=== PATIENT | male | born 1960 | race Caucasian/White ===

== ENCOUNTER 2022-10-14 13:50 | Outpatient (OUT) | payer OTHER, SELFPAY ==
[2022-10-14 14:18] LABS: Basophils Percent Auto 0.8 % (0.2-2.0); Eosinophils Absolute Auto 0.2 10^3/uL (0.0-0.7); Eosinophils Percent Auto 3.4 % (0.9-7.0); Hemoglobin 13.4 g/dL (14.0-18.0); Immature Granulocytes Abs Auto 0.01 10^3/uL (0.00-0.03); Immature Granulocytes Pct Auto 0.2 % (0.0-0.5); Lymphocytes Absolute Auto 1.1 10^3/uL (1.2-3.8); Lymphocytes Percent Auto 23.6 % (20.5-60.0); Mean Corpuscular HGB Conc 33.5 g/dL (29.9-35.2); Mean Corpuscular Hemoglobin 33.4 pg (25.9-34.0); Mean Corpuscular Volume 99.8 fL (80.0-94.0); Mean Platelet Volume 9.3 fL (9.5-13.5); Monocytes Absolute Auto 0.5 10^3/uL (0.3-0.8); Neutrophils Absolute Auto 2.9 10^3/uL (1.4-6.5); Platelet Count 188 10^3/uL (150-450); Red Blood Count 4.01 10^6/uL (4.70-6.10); Red Cell Distribution Width 13.8 % (11.0-15.0); White Blood Count 4.7 10^3/uL (4.0-11.0)
[2022-10-14 15:25] LABS: Alanine Aminotransferase 46 U/L (16-63); Albumin Globulin Ratio 0.8; Albumin Level 3.2 g/dL (3.4-5.0); Alkaline Phosphatase 141 U/L (46-116); Anion Gap 12.7; Aspartate Amino Transferase 46 U/L (15-37); BUN Creatinine Ratio 16.7; Bilirubin Total 0.2 mg/dL (0.2-1.0); Carbon Dioxide 26.1 mmol/L (21.0-32.0); Chloride 105 mmol/L (98-107); Chol HDL Ratio 2.2; Cholesterol 150 mg/dL (<=200); Estimated GFR (African America >60 (>=60); Estimated GFR (Non-African Ame >60 (>=60); Globulin 4.1 g/dL; Glucose 107 mg/dL (74-106); HDL Cholesterol 69 mg/dL (40-60); Potassium 3.8 mmol/L (3.5-5.1); Sodium 140 mmol/L (136-145); Total Protein 7.3 g/dL (6.4-8.2); Triglycerides 101 mg/dL (<=150); VLDL CHOLESTEROL 20.2 mg/dL
[2022-10-14 15:36] LABS: Prostate Specific Antigen Scrn 2.44 ng/mL (<=4.00)
== END 2022-10-14 13:51 | disposition home or self-care (01) ==
PROVIDERS: PCP Family Medicine; Visit Provider Family Medicine
DX: Z00.00 Encounter for general adult medical examination without abnormal findings (principal); Z12.5 Encounter for screening for malignant neoplasm of prostate
CPT/HCPCS: 36415; 80053; 80061; 85025; G0103

== ENCOUNTER 2023-08-26 13:27 | Emergency (ER) | payer OTHER, SELFPAY ==
[2023-08-26 13:43] VITALS: BP 139/91; PULSE 61; TEMP 36.8; O2SAT 98; BMI 30.1
--- NOTE | 2023-08-26 14:08 | US_ITS ---
The [address] [address] Patient Name: TIFFANY JACKSON MRN: [id number] date: 1960 Sex: M Assigned Patient Location: ER Current Patient Location: ER Accession/Order Number: [id number] Exam Date: 08/26/2023 14:09 Report Date: 08/26/2023 16:15 At the request of: MYNOR CARD Procedure: US venous doppler LE BI EXAMINATION: US venous doppler LE BI, 08/26/2023 2:09 PM EDT HISTORY: Leg swelling COMPARISON: None. TECHNIQUE: Ultrasound examination of the bilateral lower extremity venous systems was performed using grayscale, color and spectral Doppler. FINDINGS: The common femoral, greater saphenous, profundus femoral, superficial femoral and popliteal veins demonstrate a normal response to augmentation and compression maneuvers. Flow is identified in these vessels with no evidence of intraluminal thrombus on either color Doppler or grayscale images. The visualized portions of the proximal calf veins are also normal. Minimal subcutaneous edema is seen in the distal left lower extremity. US/US venous doppler LE BI IMPRESSION: 1. No evidence of bilateral lower extremity deep venous thrombosis. 2. Minimal subcutaneous edema seen in the distal left lower extremity. Electronically authenticated by: AKIKO MIKE Date: 08/26/2023 16:15
--- NOTE | 2023-08-26 14:31 | XR_ITS ---
[address] [address] Patient Name: TIFFANY JACKSON MRN: [id number] date: 1960 Sex: M Assigned Patient Location: ER Current Patient Location: ED.MAIN Accession/Order Number: [id number] Exam Date: 08/26/2023 14:25 Report Date: 08/26/2023 14:47 At the request of: MYNOR CARD Procedure: XR chest 1V Exam: Radiographs: XR chest 1V Reason for exam: Peripheral edema Comparison: None XR/XR chest 1V IMPRESSION: Pulmonary venous hypertension. Cardiomegaly. Remainder of the chest is unremarkable. Electronically authenticated by: CHLOE LINARES Date: 08/26/2023 14:47
[2023-08-26 14:40] LABS: Basophils Percent Auto 0.9 % (0.2-2.0); Eosinophils Absolute Auto 0.1 10^3/uL (0.0-0.7); Eosinophils Percent Auto 2.5 % (0.9-7.0); Hematocrit 40.9 % (42.0-54.0); Hemoglobin 13.3 g/dL (14.0-18.0); Immature Granulocytes Abs Auto 0.01 10^3/uL (0.00-0.03); Immature Granulocytes Pct Auto 0.2 % (0.0-0.5); Lymphocytes Absolute Auto 1.1 10^3/uL (1.2-3.8); Lymphocytes Percent Auto 24.2 % (20.5-60.0); Mean Corpuscular HGB Conc 32.5 g/dL (29.9-35.2); Mean Corpuscular Hemoglobin 31.7 pg (25.9-34.0); Mean Corpuscular Volume 97.4 fL (80.0-94.0); Mean Platelet Volume 9.4 fL (9.5-13.5); Monocytes Absolute Auto 0.4 10^3/uL (0.3-0.8); Monocytes Percent Auto 8.8 % (1.7-12.0); Neutrophils Absolute Auto 2.7 10^3/uL (1.4-6.5); Neutrophils Percent Auto 63.4 % (43.0-75.0); Platelet Count 190 10^3/uL (150-450); Red Cell Distribution Width 12.3 % (11.0-15.0); White Blood Count 4.3 10^3/uL (4.0-11.0)
[2023-08-26 14:42] VITALS: BP 149/99; PULSE 50; O2SAT 97
[2023-08-26 14:59] LABS: Alanine Aminotransferase 17 U/L (16-63); Albumin Globulin Ratio 0.7; Albumin Level 3.2 g/dL (3.4-5.0); Alkaline Phosphatase 82 U/L (46-116); Anion Gap 12.9; Aspartate Amino Transferase 19 U/L (15-37); BUN Creatinine Ratio 14.5; Bilirubin Total 0.3 mg/dL (0.2-1.0); Calcium 9.2 mg/dL (8.5-10.1); Carbon Dioxide 27.4 mmol/L (21.0-32.0); Chloride 103 mmol/L (98-107); Estimated GFR (African America >60 (>=60); Estimated GFR (Non-African Ame 59 (>=60); Globulin 4.3 g/dL; Glucose 75 mg/dL (74-106); Potassium 4.3 mmol/L (3.5-5.1); Sodium 139 mmol/L (136-145); Total Protein 7.5 g/dL (6.4-8.2)
--- NOTE | 2023-08-26 16:03 | ED.GENADUL1 ---
HPI HPI - General Adult General Chief complaint: Extremity Problem, Nontraumatic Stated complaint: BILATERAL LEG SWELLING Time Seen by Provider: 08/26/23 14:01 Source: patient Mode of arrival: walk-in Limitations: no limitations History of Present Illness HPI narrative: 64 year old male presents to the ED for intermittent bilateral leg swelling x6 months. States it is worse after standing for a period of time. Denies swelling today. Denies fever, chills, dizziness, CASTELLANOS. Denies cough, CP, SOB. Denies N/V/D, urinary sx. He does not have a pcp and has not been evaluated by a physician in some time. Related Data Previous Rx's ?Medication ?Instructions ?Recorded furosemide 20 mg tablet (Lasix) 20 mg PO DAILY #5 tabs 08/26/23 Allergies Allergy/AdvReac Type Severity Reaction Status Date / Time No Known Drug Allergies Allergy Verified 08/26/23 13:42 Opioid HPI Opioid Management Most Recent Opioid Data: No Data to Display Review of Systems ROS Constitutional Denies: fever or chills Ears, nose, mouth, and throat Denies: throat pain or neck pain Cardiovascular Reports: swelling of feet/ankles; Denies: chest pain, palpitations, lightheadedness, shortness of breath with exertion or leg pain with exertion Respiratory Denies: shortness of breath, cough, wheezing or stridor Gastrointestinal Denies: nausea, vomiting or diarrhea Genitourinary Denies: painful urination or decreased urine ouput Musculoskeletal Denies: back pain or neck pain Integumentary/Breast Denies: rash or redness Neurological Denies: headache, numbness in extremities, weakness in extremities or dizziness Exam Constitutional Vital Signs, click to edit/add: Last Vital Signs Temp 98.2 F 08/26/23 13:43 Pulse 50 L 08/26/23 14:42 Resp 18 08/26/23 14:42 BP 149/99 H 08/26/23 14:42 Pulse Ox 97 08/26/23 14:42 O2 Del Method Room Air 08/26/23 14:42 Common normals: no apparent distress and oriented x3 General appearance: cooperative [facility] Common normals: normocephalic Nose: external nose normal Mouth: oral and palatal mucosa normal, lip normal and tongue normal Eye Common normals: conjunctivae normal and no scleral icterus Neck & C-Spine Common normals: supple Chest Chest: symmetrical chest wall rise Respiratory Common normals: normal respiratory effort and clear to auscultation bilaterally Effort & inspection: able to speak in complete sentences and symmetric chest movement Cardio Common normals: regular rate and regular rhythm Peripheral pulses: posterior tibial pulses present and dorsalis pedis pulses present Extremity Common normals: normal capillary refill Other: No appreciable leg swelling at this time. Pedal pulses palpable. Distal sensation intact. Course Vital Signs Vital signs: Vital Signs Temperature 98.2 F 08/26/23 13:43 Pulse Rate 61 08/26/23 13:43 Respiratory Rate 20 08/26/23 13:43 Blood Pressure 139/91 08/26/23 13:43 Pulse Oximetry 98 08/26/23 13:43 Oxygen Delivery Method Room Air 08/26/23 13:43 Temperature 98.2 F 08/26/23 13:43 Pulse Rate 50 L 08/26/23 14:42 Respiratory Rate 18 08/26/23 14:42 Blood Pressure 149/99 H 08/26/23 14:42 Pulse Oximetry 97 08/26/23 14:42 Oxygen Delivery Method Room Air 08/26/23 14:42 Medical Decision Making MDM Narrative Medical decision making narrative: The patient denied chest pain, SOB, dizziness, weakness. Sx onset was 6 months ago. BNP was 1374. Creatinine was 1.24. Chest x-ray showed pulmonary venous hypertension; cardiomegaly. Venous Doppler showed no evidence of bilateral lower extremity deep venous thrombosis; minimal subcutaneous edema seen in the distal left lower extremity. Findings were discussed with the patient and his family member. The patient was discussed with the ED attending. He was given a list of primary care providers accepting new patients. A prescription was provided for Lasix 20 mg x5 days. He was encouraged to follow up with a pcp within the next week. If he is unable to get in to see a pcp within the next few days he was encouraged to return to the ED for further evaluation. Return precautions were discussed. Medical Records Medical records reviewed: Yes I reviewed the patient's medical records Lab Data Lab results reviewed: Yes I reviewed the patient's lab results Labs: Lab Results 08/26/23 Range/Units 14:26 WBC 4.3 (4.0-11.0) 10^3/uL RBC 4.20 L (4.70-6.10) 10^6/uL Hgb 13.3 L (14.0-18.0) g/dL Hct 40.9 L (42.0-54.0) % MCV 97.4 H (80.0-94.0) fL MCH 31.7 (25.9-34.0) pg MCHC 32.5 (29.9-35.2) g/dL RDW 12.3 (11.0-15.0) % Plt Count 190 (150-450) 10^3/uL MPV 9.4 L (9.5-13.5) fL Neut % (Auto) 63.4 (43.0-75.0) % Lymph % (Auto) 24.2 (20.5-60.0) % [place] % (Auto) 8.8 (1.7-12.0) % Eos % (Auto) 2.5 (0.9-7.0) % Baso % (Auto) 0.9 (0.2-2.0) % Neut # (Auto) 2.7 (1.4-6.5) 10^3/uL Lymph # (Auto) 1.1 L (1.2-3.8) 10^3/uL [place] # (Auto) 0.4 (0.3-0.8) 10^3/uL Eos # (Auto) 0.1 (0.0-0.7) 10^3/uL Baso # (Auto) 0.0 (0.0-0.1) 10^3/uL Abs Immat Gran (auto) 0.01 (0.00-0.03) 10^3/uL Imm/Tot Granulo (auto) 0.2 (0.0-0.5) % Sodium 139 (136-145) mmol/L Potassium 4.3 (3.5-5.1) mmol/L Chloride 103 (98-107) mmol/L Carbon Dioxide 27.4 (21.0-32.0) mmol/L Anion Gap 12.9 BUN 18.0 (7.0-18.0) mg/dL Creatinine 1.24 (0.70-1.30) mg/dL Est GFR ( Amer) >60 (>=60) Est GFR (Non-Af Amer) 59 L (>=60) BUN/Creatinine Ratio 14.5 Glucose 75 (74-106) mg/dL Calcium 9.2 (8.5-10.1) mg/dL Total Bilirubin 0.3 (0.2-1.0) mg/dL AST 19 (15-37) U/L ALT 17 (16-63) U/L Alkaline Phosphatase 82 (46-116) U/L NT-Pro-B Natriuret Pep 1374.0 H* (<=900.0) pg/mL Total Protein 7.5 (6.4-8.2) g/dL Albumin 3.2 L (3.4-5.0) g/dL Globulin 4.3 g/dL Albumin/Globulin Ratio 0.7 Imaging Data Chest x-ray: Attestation: I have reviewed the pertinent imaging results. Radiologist's impression: ITS Impressions Venous Doppler Study 08/26/23 14:08 IMPRESSION: 1. No evidence of bilateral lower extremity deep venous thrombosis. 2. Minimal subcutaneous edema seen in the distal left lower extremity. Electronically authenticated by: AKIKO MIKE Date: 08/26/2023 16:15 Chest X-Ray 08/26/23 14:31 IMPRESSION: Pulmonary venous hypertension. Cardiomegaly. Remainder of the chest is unremarkable. Electronically authenticated by: CHLOE LINARES Date: 08/26/2023 14:47 Discharge Plan Discharge Stand Alone Forms: Portal Instructions Chief Complaint: Extremity Problem, Nontraumatic Clinical Impression: Elevated brain natriuretic peptide (BNP) level, Leg swelling Patient Disposition: Home, Self-Care Time of Disposition Decision: 16:27 Condition: Good Mode of Transportation: Private Vehicle Prescriptions / Home Meds: New furosemide [Lasix] 20 mg tablet 20 mg PO DAILY Qty: 5 0RF Print Language: Danish Instructions: Leg Edema (ED), SHELIA Duong (DC) Additional Instructions: Return to the ER for new or worsening symptoms. Return to the ER if you are unable to get in to see a primary care provider within the next 5-7 days. Referrals: Physician,Non-Staff, MD [Primary Care Provider] - 1 week Discharge Date/Time: 08/26/23 16:48
== END 2023-08-26 16:48 | disposition home or self-care (01) ==
PROVIDERS: Nurse Practitioner Family; Emergency Provider Emergency Medicine
DX: M79.89 Other specified soft tissue disorders (principal); R79.89 Other specified abnormal findings of blood chemistry
CPT/HCPCS: 36415; 71045; 80053; 83880; 85025; 93970; 99285